=== PATIENT | female | born 1975 | race African-American/Black ===

== ENCOUNTER 2019-11-02 18:23 | Emergency (ER) | payer MEDICARE, MEDICAID ==
[~2019-11-02] VITALS: Ht 162.6 cm; Wt 55.0 kg
[~2019-11-02 18:23] MED LIST: DOCU-138 PO; HYDR2TAB4 PO; IBUP-2030 PO; MECL-159 PO; MORP60TA6 PO; ONDA4TAB21 PO; ONDA4TAB51 PO; OXYC-100 PO; P20 PO; TEMA15CA PO; ZOLP5TAB2 PO
[2019-11-02] MEDS ORDERED: MORPHINE SULFATE 4 MG/ML CPJ (NOT FOR IM USE) IV STA (19:33)
[2019-11-02 19:48] LABS: BASOPHILS % 1.6 % (0.0-2.0); EOSINOPHILS % 1.5 % (0.0-5.0); HEMATOCRIT. 38.6 % (36.0-48.0); HEMOGLOBIN. 12.8 g/dL (12.0-16.0); LYMPHOCYTES % 40.4 % (20.0-50.0); MEAN PLATELET VOLUME 7.6 fl (7.4-10.4); MONOCYTES % 7.1 % (2.0-8.0); NEUTROPHILS % 49.4 % (40.0-76.0); PLATELET 302 x1000/uL (130-400); RED BLOOD CELL COUNT 4.59 mill/uL (4.2-5.4); RED CELL DISTRIBUTION WIDTH 16.5 % (11.6-14.6)
[2019-11-02 19:53] LABS: CHLORIDE 106 mEq/L (98-107)
[2019-11-02] MEDS ORDERED: ONDANSETRON HCL 4MG/2ML INJ IV ONE (20:00)
[2019-11-02 20:12] LABS: PROTHROMBIN TIME 10.1 sec (9.6-11.0)
[2019-11-02 20:14] LABS: HCG SCREEN NEGATIVE
[2019-11-02] MEDS ORDERED: MORPHINE SULFATE 4 MG/ML CPJ (NOT FOR IM USE) IV ONE (22:15)
[2019-11-02 22:38] VITALS: BP 116/67
== END 2019-11-02 22:50 | disposition home or self-care (01) ==
LOC: ER 18:23
DX: R55 Syncope and collapse (principal); Z85.841 Personal history of malignant neoplasm of brain; F12.90 Cannabis use, unspecified, uncomplicated
CPT/HCPCS: 36415; 70450; 72131; 80053; 84703; 85025; 85610; 93005; 96374; 96375; 96376; 99285; J2270; J2405